=== PATIENT | female | born 1990 | race Caucasian/White ===

== ENCOUNTER 2016-10-24 14:22 | Emergency (ER) | payer OTHER ==
[~2016-10-24] VITALS: Ht 170.2 cm; Wt 73.0 kg
[2016-10-24 14:33] VITALS: BP 131/82; PULSE 98; RESP 20; TEMP 98.2; O2SAT 99
[2016-10-24] MEDS ORDERED: LEVE500 PO (14:39)
[2016-10-24] MEDS ORDERED: LORazepam 1 MG TAB PO ONE (15:15)
[2016-10-24 15:57] LABS: AUTOMATED NEUTROPHIL # 6.2 TH/MM3 (1.8-7.7); BASOPHIL % 0.4 % (0.0-2.0); EOSINOPHIL % 0.5 % (0.0-4.0); HEMATOCRIT 37.2 % (35.0-46.0); HEMO FLAGS DIFF FINAL; LYMPHOCYTE # 1.5 TH/MM3 (1.0-4.8); MEAN CORPUSCULAR HEMOGLOBIN 30.8 PG (27.0-34.0); MEAN CORPUSCULAR HGB CONC 35.4 % (32.0-36.0); MONO % 5.4 % (0.0-8.0); NEUT % 75.7 % (16.0-70.0); PLATELET COUNT 271 TH/MM3 (150-450); RED BLOOD COUNT 4.28 MIL/MM3 (4.00-5.30); RED CELL DISTRIBUTION WIDTH 12.7 % (11.6-17.2); WHITE BLOOD COUNT 8.2 TH/MM3 (4.0-11.0)
[2016-10-24 16:06] LABS: BICARBONATE 27.4 MEQ/L (21.0-32.0); POTASSIUM 4.6 MEQ/L (3.5-5.1)
--- NOTE | 2016-10-24 16:37 | PD ---
HPI Chief Complaint: Anxiety Time Seen by Provider: 16:31 Travel History International Travel<30 days: No Contact w/Intl Traveler<30days: No Traveled to known affect area: No History of Present Illness HPI 26-year-old female that presents to the ED for evaluation of anxiety. The patient in for very she was diagnosed with seizures and a different hospital in [place]. Per patient she's never had a seizure before. Per patient she was started on Keppra. The neurologist recommendations on that visit and she'll follow with a neurologist at [facility] who recommended against continuing the medication. Patient stated that at the time she did not want to end the medication as she is concerned to having another one and she knows that she cannot drive unless she is 6 months free of seizures and she is concerned for having another once that she continue the medication. Per patient she's noted that ever since starting the medication she's been more anxious and depressed. Per patient she's had what she believes is tightness in her chest and abdomen to give her the sensation of anxiety. Per patient she really she's having more panic attacks. She's had panic attacks in the past or not as severe as this time. Per patient when she was in last couple she had to be put on Xanax with good results but ever since she has not taken anything. She follows with a psychiatrist in October but she believes that this is too far along. Per patient she doesn't know this is related to the Keppra or a psychiatric illness. She states that her symptoms are moderate. She denies any suicidal or homicidal ideation. Per patient she feels [place] and then anxiety comes and goes. She is concerned that she might lose her job secondary to the increase in anxiety and the resent seizure. [facility] Past Medical History Seizures: Yes (X 1 IN SEP) Tetanus Vaccination: < 5 Years ?: Not Past Surgical History Surgical History: No Previous Surgery Social History Alcohol Use: No Tobacco Use: No Substance Use: No Allergies-Medications (Allergen,Severity, Reaction): Coded Allergies: No Known Allergies (Unverified , 10/24/16) Reported Meds & Prescriptions Reported Meds & Active Scripts Active Reported Keppra (Levetiracetam) 500 Mg Tab 500 Mg PO BID Review of Systems General / Constitutional: No: Fever, Chills, Weight Gain, Weight Loss, Other Eyes: No: Diploplia, Blurred Vision, Photophobia, Drainage, Redness, Foreign Body Sensation, Pain, Tearing, Blind Spots, Visual changes, Blindness, Other HENT: No: Headaches, Vertigo, Lightheadedness, Sore Throat, Rhinitis, Rhinorrhea, Congestion, Nosebleed, Neck Stiffness, Neck Pain, Masses, Gingival Bleeding, Dental Difficulties, Ear Discharge, Earache, Other Cardiovascular: Positive: Chest Pain or Discomfort, No: Palpitations, Irregular Rhythm, Tachycardia, Diaphoresis, Syncope, Dyspnea on exertion, Varicosities, Edema, Cyanosis, Varicosities, Phlebitis, Claudication, Other Respiratory: Positive: Shortness of Breath, No: Cough, Wheezing, Sneezing, Orthopnea, Hemoptysis, Stridor, Night Sweats, Pleuritic Pain, Other Gastrointestinal: No: Nausea, Vomiting, Diarrhea, Abdominal Pain, Hematemesis, Hematochezia, Constipation, Changes in Bowel Habits, Indigestion, Dysphagia, Loss of Appetite, Other Genitourinary: No: Urgency, Frequency, Dysuria, Nocturia, Hematuria, Decreased Urinary Output, Oliguria, Hesitancy, Dribbling, Incontinence, Pelvic Pain, Flank Pain, Dyspareunia, Discharge, Dysmenorrhea, Menorrhagia, Metorrhagia, Vaginal Bleeding, Other Musculoskeletal: No: Myalgias, Arthralgias, Limited ROM, Weakness, Cramping, Edema, Pain, Atrophy, Other Skin: No Rash, No Itching, No Dryness, No Lumps, No Hives, No Change in Pigmentation, No Change in nails, No Alopecia, No Lesions, No Breast Lumps, No Breast Tenderness, No Breast Swelling, No Other Neurologic: Positive: Seizures, No: Weakness, Dizziness, Syncope, Focal Abnormalities, Coordination Problem, Tremor, Ataxia, Headache, Change in Mentation, Slurred Speech, Paresthesia, Incontinence, Sensory Disturbance, Other Psychiatric: Positive: Anxiety, Depression, No: Suicidal Ideations, Disorder of Thought, Mood Disorder, Substance Abuse, Homicidal Ideation, Other Endocrine: No: Heat Intolerance, Cold Intolerance, Polyuria, Polydipsia, Other Hematologic/Lymphatic: No: Easy Bruising, Lymph Node Enlargement, Other Physical Exam Narrative GENERAL: SKIN: Warm and dry. HEAD: Atraumatic. Normocephalic. EYES: Pupils equal and round. No scleral icterus. No injection or drainage. ENT: No nasal bleeding or discharge. Mucous membranes pink and moist. Tongue is midline. No uvula deviation. NECK: Trachea midline. No JVD. CARDIOVASCULAR: Regular rate and rhythm. No murmurs, S3, S4. RESPIRATORY: No accessory muscle use. Clear to auscultation. Breath sounds equal bilaterally. GASTROINTESTINAL: Abdomen soft, non-tender, nondistended. Hepatic and splenic margins not palpable. MUSCULOSKELETAL: Extremities without clubbing, cyanosis, or edema. No obvious deformities. Full range of motion of the upper and lower extremities bilaterally. Pupils pulses bilaterally. NEUROLOGICAL: Awake and alert. No obvious cranial nerve deficits. Motor grossly within normal limits. Five out of 5 muscle strength in the arms and legs. Normal speech. PSYCHIATRIC: Anxious mood and affect; insight and judgment normal. Data Data Last Documented VS Vital Signs Date Time Temp Pulse Resp B/P Pulse Ox O2 Delivery O2 Flow Rate FiO2 10/24/16 14:33 98.2 98 20 131/82 99 Orders Psych Screen (10/24/16 14:57) Complete Blood Count With Diff (10/24/16 15:13) Basic Metabolic Panel (Bmp) (10/24/16 15:13) Levetiracetam (10/24/16 15:13) Lorazepam (Ativan) (10/24/16 15:15) Labs Laboratory Tests Test 10/24/16 15:30 White Blood Count 8.2 TH/MM3 Red Blood Count 4.28 MIL/MM3 Hemoglobin 13.2 GM/DL Hematocrit 37.2 % Mean Corpuscular Volume 87.0 FL Mean Corpuscular Hemoglobin 30.8 PG Mean Corpuscular Hemoglobin 35.4 % Concent Red Cell Distribution Width 12.7 % Platelet Count 271 TH/MM3 Mean Platelet Volume 7.7 FL Neutrophils (%) (Auto) 75.7 % Lymphocytes (%) (Auto) 18.0 % Monocytes (%) (Auto) 5.4 % Eosinophils (%) (Auto) 0.5 % Basophils (%) (Auto) 0.4 % Neutrophils # (Auto) 6.2 TH/MM3 Lymphocytes # (Auto) 1.5 TH/MM3 Monocytes # (Auto) 0.4 TH/MM3 Eosinophils # (Auto) 0.0 TH/MM3 Basophils # (Auto) 0.0 TH/MM3 CBC Comment DIFF FINAL Differential Comment Sodium Level 141 MEQ/L Potassium Level 4.6 MEQ/L Chloride Level 105 MEQ/L Carbon Dioxide Level 27.4 MEQ/L Anion Gap 9 MEQ/L Blood Urea Nitrogen 9 MG/DL Creatinine 0.76 MG/DL Estimat Glomerular Filtration 91 ML/MIN Rate Random Glucose 78 MG/DL Calcium Level 8.8 MG/DL MDM Medical Decision Making Medical Screen Exam Complete: Yes Emergency Medical Condition: Yes Medical Record Reviewed: Yes Interpretation(s) CBC & BMP Diagram 10/24/16 15:30 Differential Diagnosis Anxiety versus medication side effect versus depression versus seizure disorder versus normal exam Narrative Course 26-year-old female that presents to the ED for evaluation of anxiety and possible medication side effect. Patient was properly examined and was found to have signs and symptoms consistent with appears to be anxiety. Unclear if this is secondary to the Keppra, recent seizure diagnosis or increase of stressors secondary to the seizure causing more depression and anxiety. Patient does have a history in the past. At this time I recommend doing lab work to make sure there is no sign of overdose on the Keppra. Patient agrees with this. Labs were drawn and were essentially unremarkable. Patient was reassured. At this time I cannot completely rule out the patient likely having anxiety and depression secondary to psychiatric illness. I recommend psychiatric evaluation. Patient is agreeable with this. Patient was given Ativan for her anxiety with good results. Patient agrees for psychiatric evaluation. Labs were essentially unremarkable. Keppra level still not present. I was informed that this will likely take a couple days to come back and has it has to be a send out. Patient had psych screening and they agreed to follow-up outpatient. I recommend that the patient takes Vistaril to help with anxiety. This time I do recommend stopping the Keppra until she sees her neurologist for better assessment of this. She agrees with this. Follow up with PCP. See ED if worsening symptoms. She was also given Zofran for her nausea. Note for work given Diagnosis Primary Impression: Anxiety Additional Impression: Medication side effect Qualified Code: T88.7XXA - Medication side effect, initial encounter Patient Instructions: General Instructions, Narcotic given in the ED Departure Forms: Tests/Procedures, Work Release Enter return to work date: Oct 26, 2016 Additional Instructions: Take medications as prescribed only if needed. Follow with psychiatrist as well as neurologist as soon as you get a chance to better evaluate for this. See ED for worsening symptoms Med/Other Pt SpecificInfo: Prescription(s) given Scripts Hydroxyzine Pamoate (Vistaril)50 Mg Cap50 Mg PO TID PRN (ANXIETY) #20 CAP Ref 0 Prov:Marie Vital MD 10/24/16 Ondansetron (Zofran)4 Mg Tab4 Mg PO Q6HR PRN (NAUSEA OR VOMITING) #20 TAB Prov:Marie Vital MD 10/24/16 Disposition: 01 DISCHARGE HOME Condition: Stable Steven Rico Oct 24, 2016 16:37
[2016-10-24] MEDS ORDERED: ZOFR4TAB PO (19:38)
[2016-10-24] MEDS ORDERED: VIST50CA PO (19:38)
== END 2016-10-24 20:40 | disposition home or self-care (01) ==
LOC: NEDAMB 14:22
DX: F41.9 Anxiety disorder, unspecified (principal); R56.9 Unspecified convulsions
CPT/HCPCS: 80048; 80177; 85025; 99283